=== PATIENT | female | born 1975 | race Hispanic/Latino ===

== ENCOUNTER 2016-07-12 06:46 | Inpatient (IN) | payer OTHER ==
[2016-07-12] MEDS ORDERED: NACL 0.9% 1000 ML 1,000 ML IV ONE (07:30)
[2016-07-12 07:49] LABS: Basophils % (Auto) 0.6 % (0.0-1.8); Eosinophils % (Auto) 0.2 % (0.0-4.3); Hematocrit 37.4 % (30.3-42.9); Hemoglobin 12.1 gm/dl (10.1-14.3); Mean Corpuscular HGB Conc 32 % (30-34); Mean Corpuscular Hemoglobin 26 pg (28-32); Mean Corpuscular Volume 81 fl (79-97); Platelet Count 233 K/mm3 (140-440); Red Blood Count 4.62 M/mm3 (3.65-5.03); Red Cell Distribution Width 17.8 % (13.2-15.2); White Blood Count 5.9 K/mm3 (4.5-11.0)
[2016-07-12 07:58] LABS: INR 0.97 (0.87-1.13)
[2016-07-12 08:08] LABS: Alanine Aminotransferase 8 units/L (7-56); Albumin/Globulin Ratio 1.1 %; Alkaline Phosphatase 141 units/L (35-129); Anion Gap 20 mmol/L; BUN/Creatinine Ratio 8.88; Bilirubin,Total 0.8 mg/dL (0.1-1.2); Blood Urea Nitrogen 8 mg/dL (7-17); Calcium 9.1 mg/dL (8.4-10.2); Carbon Dioxide 22 mmol/L (22-30); Chloride 94.5 mmol/L (98-107); Glucose 151 mg/dL (65-100); Potassium 3.9 mmol/L (3.6-5.0); Sodium 133 mmol/L (137-145); Total Protein 7.8 g/dL (6.3-8.2)
--- NOTE | 2016-07-12 08:18 | Emergency Department Report ---
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 Both of these swellings are minimal at this time. Patient states she's had a 25 pound weight loss in the last month. Patient complains of pain to her left shoulder radiating up to her neck and down her left arm and into her back with movement and palpation. Patient states occasionally when she bends over she feels like there is something moving in her abdomen but is not having any abdominal pain. Patient states she's been having body aches cold chills and diaphoresis. Mode of arrival: private car Source: Patient Began: One month ago Duration: One month Context: See above Quality: Dull shoulder pain Severity: 4 out of 10 Improved with: Nothing Worsened with: Nothing Associated signs and symptoms: See above ED Past Medical Hx - Past Medical History Previous Medical History?: Yes Additional medical history: carciod syndroid - Surgical History Past Surgical History?: Yes Hx Appendectomy: Yes Additional Surgical History: laparoscoy. 5 tumors removed from colon. - Social History Smoking Status: Current Every Day Smoker Substance Use Type: Alcohol - Medications Home Medications: Home Medications Medication Instructions Recorded Confirmed Last Taken Type No Known Home Medications [No 05/24/16 05/24/16 Unknown History Reported Home Medications] ED Review of Systems ROS: Stated complaint: LUMP ON CHEST Other details as noted in HPI ROS Constitutional: fever ENT: No uri symptoms Cardiovascular: No chest pain Respiratory: No sob, occasional smoker's cough GI: No nausea vomiting or diarrhea : No dysuria frequency or urgency, Skin: No rash Neuro: No focal weakness or numbness Psych: No depression Junito/lymph: No edema Physical Exam - Physical Exam Vital Signs: Vital Signs 07/12/16 07/12/16 06:50 07:53 Temperature 98.6 F Pulse Rate 138 H Respiratory 20 18 Rate Blood Pressure 164/94 O2 Sat by Pulse 98 Oximetry Physical Exam: GENERAL: The patient is well-developed well-nourished . HEENT: Normocephalic. Atraumatic. Extraocular motions are intact. Patient has moist mucous membranes. NECK: Supple. No meningitic signs are noted. There is no adenopathy noted. CHEST/LUNGS: Clear to auscultation. There is no respiratory distress noted. HEART/CARDIOVASCULAR: Regular. There is tachycardia. There is no gallop rub or murmur. ABDOMEN: Abdomen is soft, nontender. Patient has normal bowel sounds. There is no abdominal distention. SKIN: There is no rash. There is no edema. There is no diaphoresis. NEURO: The patient is awake, alert, and oriented. The patient is cooperative. The patient has no focal neurologic deficits. The patient has normal speech. MUSCULOSKELETAL: There is no tenderness or deformity. There is no limitation range of motion. There is no evidence of acute injury. ED Course Vital Signs 07/12/16 07/12/16 06:50 07:53 Temperature 98.6 F Pulse Rate 138 H Respiratory 20 18 Rate Blood Pressure 164/94 O2 Sat by Pulse 98 Oximetry ED Medical Decision Making - Lab Data Result diagrams: 07/12/16 07:29 07/12/16 07:29 - EKG Data -: EKG Interpreted by Ks EKG shows normal: sinus rhythm Rate: tachycardia (133) - EKG Data When compared to previous EKG there are: previous EKG unavailable Interpretation: [facility] - Radiology Data Radiology results: report reviewed Critical care attestation.: If time is entered above; I have spent that time in minutes in the direct care of this critically ill patient, excluding procedure time. ED Disposition Clinical Impression: Multiple pulmonary nodules, Adenopathy Disposition: OP ADMITTED IP TO THIS HOSP Is pt being admited?: Yes Does the pt Need Aspirin: Yes Time of Disposition: 10:33 (admit to the hospitalist)
[2016-07-12] MEDS ORDERED: NACL 0.9% 1000 ML IV ONE (08:19)
[2016-07-12 08:33] LABS: Bacteria,Urine 3+ /HPF (Negative); Bilirubin,Urine NEG (Negative); Blood,Urine SM (Negative); Ketones,Urine NEG (Negative); Leukocyte Esterase,Urine MOD (Negative); Mucus,Urine FEW /HPF; Nitrite,Urine NEG (Negative); Protein,Urine <15 mg/dL mg/dL (Negative); Urobilinogen,Urine < 2.0 mg/dL (<2.0)
--- NOTE | 2016-07-12 08:39 | XRay Report ---
AP CHEST: HISTORY: Sepsis, fever AP view of the chest demonstrates a normal mediastinal and cardiac contour with clear lungs and normal bony and soft tissue structures. IMPRESSION: Unremarkable AP chest.
[2016-07-12] MEDS ORDERED: ZOFRAN IV ONE (09:02)
[2016-07-12] MEDS ORDERED: NACL ONE (09:12)
[2016-07-12 09:40] LABS: Urine Drugs of Abuse Note Disclamer
--- NOTE | 2016-07-12 10:51 | Cat Scan Report ---
CTA CHEST CT ABDOMEN AND PELVIS WITH CONTRAST INDICATION: Chest pain. Carcinoid tumor in the past, treated with radiation and multiple laparoscopic surgeries. COMPARISON: None similar. FINDINGS: Chest CTA performed following intravenous administration of 100 cc of Omnipaque 350. Rotational MIP's also obtained. Abdomen and pelvis CT also performed with axial, sagittal and coronal CT reconstructions obtained. CHEST: Top normal heart size. No effusions. No aortic aneurysm, dissection or suspicious pulmonary arterial filling defects. Patent airway. Few small mediastinal lymph nodes with the largest AP window lymph node approximately 9 mm, axial series 2, image 69. A right distal paratracheal lymph node may measure 1 cm, axial image 77. Small subcarinal lymph node is 6 mm in the short axis. No size significant hilar lymphadenopathy. Largest right axillary lymph node is approximately 1.9 x 1 cm, axial image 54, series 2 with some intrinsic fat. Normal thyroid. Numerous small bilateral noncalcified pulmonary nodules noted, many in the upper lobes with the largest left upper lobe nodule approximately 6 mm, axial series 2, image 42. Approximately 6 mm peripheral right upper lobe nodule, axial image 70, few right middle lobe nodules measuring up to 4 mm on axial image 120 as also an approximately 5 mm peripheral/subpleural right lower lobe nodule noted, axial image 132, series 2, amongst others. An approximately 5 mm left lower lobe subpleural noncalcified nodule also seen on axial image 151, series 2. Bibasilar dependent atelectasis. Mild right middle lobe and lingular scarring. Nonspecific distal esophageal wall thickening, not excluded for gastroesophageal reflux and/or hiatal hernia, amongst others. Approximately 9 x 7 mm right cardiophrenic angle lymph node, axial image 150 as also an approximately 1.1 cm distal paraesophageal lymph node at the GE junction, axial image 161, series 2 also seen. Subtle nonspecific asymmetry in the pectoralis major muscles superomedially also noted, asymmetrically enlarged to approximately 3 x 5.5 cm on the left, axial image 43, series 2. ABDOMEN: Approximately 5 mm indeterminate left hepatic lobe hypodensity, axial series 2, image 327. Liver approximately 17 cm in midclavicular length while the spleen is 13.3 cm. Otherwise unremarkable liver, spleen, gallbladder, pancreas, adrenals, nonaneurysmal abdominal aorta with few atherosclerotic calcifications, IVC and non-hydronephrotic kidneys. Slight left renal duplicated collecting system may be present, though fuses fairly quickly with somewhat prominent renal pelvis/proximal ureter as on delayed axial series 4, image 19 and attaining a more normal caliber further distally. No ascites. Few small retroperitoneal lymph nodes measure up to approximately 9 mm left para-aortic on axial image 367, series 2. Few small, subcentimeter mesenteric lymph nodes as well. Nonopacified GI tract evaluation limited, though grossly nonobstructive. Presumed appendectomy clips. However, somewhat nonspecific soft tissue prominence about the ileocecal valve region in the proximal ascending colon, axial series 2, images 433-457, possibly physiologic though an occult mass not entirely excluded in the given setting. Colonic stool, most along the ascending colon/possible mild constipation. PELVIS: Few pelvic phleboliths. Grossly unremarkable uterus, adnexa, urinary bladder and the rectosigmoid except for mild sigmoid diverticulosis. No free fluid or significant adenopathy. Mild multilevel spinal degenerative changes/spurring. CONCLUSION: 1. No CT evidence of pulmonary embolism or acute process in the abdomen or pelvis, as described. 2. However, numerous small noncalcified bilateral pulmonary nodules are suspicious for metastatic disease in the given setting, until proven otherwise. Direct comparison with more remote chest CT imaging would be very helpful in this regard, if available. If not, short-term CT followup in approximately 3 months towards two-year surveillance may be undertaken or until they reach a biopsiable size. 3. Nonspecific proximal ascending colon appearance about the ileocecal valve region, as described above. Colonoscopy/barium enema correlation may provide additional detail, if warranted. 4. Various other incidental findings, including nonspecific asymmetric enlargement of the left pectoralis major muscle superiorly, few small thoracic and abdominal lymph nodes, slight splenomegaly and mild sigmoid diverticulosis, amongst others, as described. PET-CT may also help evaluate many of the above findings, if warranted. I phoned the above results to Dr. John in the ER, 10:20 AM, 07/12/2016. Thank you for the opportunity to participate in this patient's care.
--- NOTE | 2016-07-12 11:13 | Admit Criteria Form ---
Admission Criteria Documentation: PULMONARY DISEASE GRG Clinical Indications for Admission to Inpatient Care ( Place 'X' for any and all applicable criteria): Hospital admission is needed for appropriate care of the patient because of ANY ONE of the following(1): [ ]I. Impending or actual respiratory arrest ( Use Respiratory Failure Criteria for severe respiratory disease and long-term mechanical ventilation patients) (4) [ ]II. Severe airflow or ventilation abnormalities (not responsive to emergency and observation care treatment as appropriate) as indicated by ANY ONE of the following(5)(6)(7)(8) : [ ]a) PCO2 > 42 mm Hg (5.6 kPa) and pH < 7.35 (new) [ ]b) Documented PCO2 increase > 5 mm Hg (0.7 kPa) from disease baseline [ ]c) Airflow measurements[A] < 60% of previous best or predicted ( e.g., PEF <300 L/minute) despite intensive emergent treatment[B] [ ]d) Required respiratory treatments that are performable only in acute inpatient setting [ ]III. Severe respiratory findings (not responsive to emergency and observation care treatment as appropriate) including ANY ONE of the following(5)(8)(9): [ ]a) Respiratory distress as indicated by ALL of the following(5)(10): [ ]i) Patient with ANY ONE of the following: [ ]1) Dyspnea (difficulty breathing) [ ]2) Abnormal breathing pattern (eg, chest retractions) [ ]3) Tachypnea [ ]4) Other evidence of difficulty breathing [ ]ii) Evidence of respiratory compromise indicated by ANY ONE of the following: [ ]1) Hypoxemia [ ]2) Altered mental status [ ]3) Other evidence of respiratory compromise (eg, pulmonary edema on chest x-ray) [ ]b) Stridor [ ]c) Gross hemoptysis(11) [ ]d) Acute cyanosis [ ]IV. High-risk pulmonary infection as indicated by ANY ONE of the following( 19)(20)(21)(22): [ ]a) Temperature less than 95 degrees F(35 degrees C) or greater than 103.1 degrees F(39.5 degrees C) [ ]b) Hemodynamic instability that remains after emergency or observation level care (as appropriate) [ ]c) Immunocompromised patient (eg, AIDS, post transplant, neutropenic) [ ]d) History of severe COPD [ ]e) History of severely symptomatic congestive heart failure [ ]f) Other high-risk comorbidity (eg, poorly controlled diabetes, cirrhosis, chronic renal insufficiency) [ ]g) Hypoxemia (new) [ ]h) Outpatient, observation, or recovery facility therapy has failed, is not appropriate, or is not feasible [ ]V. Severe atelectasis or lung collapse(15)(16) [ ]. Tuberculosis requiring inpatient treatment as indicated by ANY ONE of the following(17)(18): [ ]a) New positive acid-fast bacilli sputum smear [ ]b) Positive acid-fast bacilli smear (under current treatment), with ANY ONE of the following: [ ]i) Unexposed household contacts [ ]ii) Infants or immunosuppressed household contacts [ ]iii) Patient unable or unwilling to avoid exposing others [ ]iv) Severe immunocompromised patient (eg, AIDS, post transplant, neutropenic) [ ]VII. Empyema or lung abscess(13)(14) [ ]VIII. Severe pulmonary arterial hypertension or pulmonary vascular disease requiring inpatient care indicated by ANY ONE of the following(24)(25): [ ]a) Initiation or change of vasodilators (IV, subcutaneous, or inhaled) or other vasoactive medications needed [ ]b) IV anticoagulation needed (eg, immediate anticoagulation necessary, alternatives not appropriate) [ ]c) Arterial or pulmonary artery catheter monitoring needed due to infusion or other treatment [ ]IX. Chronic lung disease with severe deterioration (not responsive to emergency and observation care treatment as appropriate) as indicated by ANY ONE of the following (6)(12): [ ]a) SaO2 5% below baseline in patient with chronic hypoxemia [ ]b) New requirement for supplemental oxygen to keep SaO2 at baseline or acceptable level [ ]c) Required supplemental oxygen performable only in acute inpatient setting [ ]d) Severe airflow or ventilation abnormalities [ ]e) Rapid rate of exacerbation onset [ ]f) Previously mobile patient unable to walk between rooms [ ]g) Inability to eat or sleep due to dyspnea [ ]h) Altered mental status [ ]X. Cystic fibrosis with severe deterioration as indicated by ANY ONE of the following(26)(27): [ ]a) Severe exacerbation that does not respond to intensified home therapy [ ]b) Pneumonia [ ]c) Hemoptysis [ ]d) Atelectasis [ ]e) Pneumothorax [ ]f) Respiratory failure [ ]g) Severe exacerbation with patient unable to perform prescribed treatments at home [ ]XI. Severe right heart failure as indicated by ANY ONE of the following(24) (25): [ ]a) Increasing organ failure (eg, liver congestion with significant and worsening or new elevation of transaminases) [ ]b) Anasarca [ ]c) Angina that requires inpatient care (eg, not treatable in emergency or observation level of care) [ ]d) Respiratory distress [ ]e) Syncope [ ]f) SBP < 90 mm Hg (new) [ ]XII. Injury requiring inpatient care (medical) as indicated by ANY ONE of the following(28): [ ]a) Significant inhalation injury (eg, smoke inhalation, other toxic inhalation) (29)(30)(31) [ ]b) Airway obstruction that remains or is unstable after emergency or observation level care(32) [ ]c) Severe pain requiring acute inpatient management [ ]d) Lung contusion [ ]e) Bronchial tree injury [ ]f) Air or fat emboli(33) [ ]g) Other injury not treatable in emergency or observation level care (eg, hemothorax) (34) [ ]XIII. Pulmonary hemorrhage or significant hemoptysis(11)(35)(36) [ ]XIV. Inpatient palliative care needed[C](37)(38)(39)(40) [ ]XV. Complications of lung transplant (eg, rejection, failure, respiratory infection) (23) [X]XVI. Pulmonary Disease and ANY ONE of the following: [X]a) General Admission Criteria [ ]b) Pediatric General Admission Criteria The original [facility] content created by [facility] has been revised. The portions of the content which have been revised are identified through the use of italic text or in bold, and [facility] has neither reviewed nor approved the modified material. All other unmodified content is copyright [facility]. Please see references footnoted in the original [facility] edition 2016 Admission Criteria Met: Yes
[2016-07-12] MEDS ORDERED: ZOFRAN IV PRN (20:57)
[2016-07-13] MEDS: APRESOLINE IV PRN ×3 (00:06→08:28)
[2016-07-13] MEDS: DILAUDID IV PRN ×5 (00:07→19:22)
[2016-07-13] MEDS: ATIVAN IV PRN ×3 (04:20→23:18)
[2016-07-13] MEDS ORDERED: NITRO-BID 2% TP ONE (04:40)
--- NOTE | 2016-07-13 08:34 | History and Physical Report ---
CHIEF COMPLAINT: 1. Swelling under the left clavicle area. 2. Swelling in the right lower leg around the mid calf region. 3. Weight loss. 4. Fever. 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 The patient has shown pictures of the left infraclavicular swelling which measures about 10 cm to 5 cm swelling below the left clavicle, but which is not prominent at the time of presentation to the ER. Also, swelling on the right webb and also on the left side of the face. She lost about 25 pounds of weight recently. The patient also complains of left shoulder pain radiating to the neck and down the left arm. Other than losing weight, the patient does not have any symptoms. PAST MEDICAL HISTORY: Significant for carcinoid syndrome. PAST SURGICAL HISTORY: Significant for laparoscopy and 5 tumors removed from colon. SOCIAL HISTORY: Smokes over a pack a day. Alcohol occasionally. FAMILY HISTORY: Significant for hypertension. CURRENT MEDICATIONS: None. REVIEW OF SYSTEMS: Significant for recurrent swelling in the left infraclavicular region, right webb, and left side of the face and of weight loss. Otherwise, review of systems is essentially negative. A 14-point review of systems was done. PHYSICAL EXAMINATION: GENERAL: Middle-aged female, cooperative during examination. VITAL SIGNS: Temperature 98.6, pulse is 138, respirations are 20, blood pressure is 164/94, sats are 98%. HEENT: Unremarkable. Pupils equal and reactive. NECK: Supple. No lymphadenopathy, no thyromegaly. CHEST: Swelling on the left infraclavicular region present, not as prominent as the pictures she has shown on her telephone. Is about 3 x 5 cm, elevated by about 1 cm. Firm in nature. Not hard. Not fluctuant. LUNGS: Clear to auscultation and percussion. Good air entry. CARDIOVASCULAR: S1, S2 heard. No gallop, no murmur, no rub. Apical impulse in left fifth intercostal space and midclavicular line. ABDOMEN: Soft and benign. No hepatosplenomegaly. No guarding, no rigidity. Hernial orifices are normal. EXTREMITIES: Good pedal pulses. No pedal edema. There is a small swelling on the right webb, 1 x 1 cm in the mid calf region. On the left side of the face, there is no swelling. SKIN: Normal. CENTRAL NERVOUS SYSTEM: Alert and oriented x 4. Nonfocal deficits. LABORATORY DATA: Electrolytes were normal. Sodium is 133, slightly low. BUN and creatinine are 8 and 0.9. White count is 5900. Glucose is 151. LFTs are normal. Urine shows 10 wbc's. Drug screen positive for cocaine and opiates. CAT scan of the abdomen and pelvis, numerous small noncalcified bilateral pulmonary nodules, suspicious for metastatic cancer in the given setting until proven otherwise. Previous CAT scan is not available. Nonspecific proximal ascending colon appearance about the ileocecal valve region as described above. Colonoscopy with barium enema correlations may provide additional detail. Various other incidental findings including nonspecific asymmetric enlargement of the left pectoralis muscle superiorly. CTA of the chest shows the same thing, numerous small noncalcified bilateral pulmonary nodules suspicious for metastatic disease. Nonspecific proximal ascending colon appearance. Various other incidental findings. Chest x-ray shows unremarkable AP chest. ASSESSMENT AND PLAN: 1. 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 We will get oncology consultation with Dr. Floyd. 2. Hypertension. No known home medications. The patient started on losartan 100 mg daily. Blood pressure 217/119. IV fluids for the time being. 3. Pain management. Dilaudid 1 mg q. 3 p.r.n. along with Zofran 4 mg q. 3 p.r.n. 4. Deep venous thrombosis prophylaxis. Lovenox 40 mg subcutaneous daily. JOB# [id number] VSSravani/NTS
[2016-07-13] MEDS: COZAAR PO SCH (10:12)
--- NOTE | 2016-07-13 12:21 | Progress Note ---
Assessment and Plan Assessment and plan: Patient is history of carcinoid, presented with fever, weight loss and mass on the chest - CT showed nodules in the lung and also some lesions in the colon and liver - There is no mass on the chest currently patient has on and off mass on the right chest - Oncology consult UTI - Urine is positive for gram-negative rods - Patient started on by mouth Levaquin Prophylaxis - Lovenox Disposition - Continue care History Interval history: Patient was seen and evaluated this morning. She had a panic attack this morning. Hospitalist Physical - Physical exam Narrative exam: Not in cardiopulmonary distress. The patient appeared well nourished and normally developed. Vital signs as documented. Head exam is unremarkable. No scleral icterus . Neck is without jugular venous distension, thyromegaly, or carotid bruits. Lungs are clear to auscultation. Cardiac exam reveals regular rate and Rhythm. First and second heart sounds normal. No murmurs, rubs or gallops. Abdominal exam reveals normal bowel sounds, no masses, no organomegaly and no aortic enlargement. Extremities are nonedematous and both femoral and pedal pulses are normal. 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 No focal weakness. - Constitutional Vitals: Temp Pulse Resp BP Pulse Ox 98 F 124 H 22 152/110 98 07/13/16 07:55 07/13/16 07:55 07/13/16 08:54 07/13/16 10:12 07/13/16 07:55 Results - Labs CBC & Chem 7: 07/12/16 07:29 07/12/16 07:29 Labs: Laboratory Last Values WBC 5.9 K/mm3 (4.5-11.0) 07/12/16 07:29 RBC 4.62 M/mm3 (3.65-5.03) 07/12/16 07:29 Hgb 12.1 gm/dl (10.1-14.3) 07/12/16 07:29 Hct 37.4 % (30.3-42.9) 07/12/16 07:29 MCV 81 fl (79-97) 07/12/16 07:29 MCH 26 pg (28-32) L 07/12/16 07:29 MCHC 32 % (30-34) 07/12/16 07:29 RDW 17.8 % (13.2-15.2) H 07/12/16 07:29 Plt Count 233 K/mm3 (140-440) 07/12/16 07:29 Lymph % (Auto) 14.6 % (13.4-35.0) 07/12/16 07:29 [place] % (Auto) 6.7 % (0.0-7.3) 07/12/16 07:29 Eos % (Auto) 0.2 % (0.0-4.3) 07/12/16 07:29 Baso % (Auto) 0.6 % (0.0-1.8) 07/12/16 07:29 Lymph # 0.9 K/mm3 (1.2-5.4) L 07/12/16 07:29 [place] # 0.4 K/mm3 (0.0-0.8) 07/12/16 07: Eos # 0.0 K/mm3 (0.0-0.4) 07/12/16 07: Baso # 0.0 K/mm3 (0.0-0.1) 07/12/16 07:29 Seg Neutrophils % 77.9 % (40.0-70.0) H 07/12/16 07:29 Seg Neutrophils # 4.6 K/mm3 (1.8-7.7) 07/12/16 07:29 PT 12.8 Sec. (12.2-14.9) 07/12/16 07:29 INR 0.97 (0.87-1.13) 07/12/16 07:29 D-Dimer 389.7 ng/mlDDU (0-234) H 07/12/16 08:07 VBG pH 7.365 (7.320-7.420) 07/12/16 07:29 Sodium 133 mmol/L (137-145) L 07/12/16 07:29 Potassium 3.9 mmol/L (3.6-5.0) 07/12/16 07:29 Chloride 94.5 mmol/L (98-107) L 07/12/16 07:29 Carbon Dioxide 22 mmol/L (22-30) 07/12/16 07:29 Anion Gap 20 mmol/L 07/12/16 07:29 BUN 8 mg/dL (7-17) 07/12/16 07:29 Creatinine 0.9 mg/dL (0.7-1.2) 07/12/16 07:29 Estimated GFR > 60 ml/min 07/12/16 07:29 BUN/Creatinine Ratio 8.88 % 07/12/16 07:29 Glucose 151 mg/dL (65-100) H 07/12/16 07:29 Lactic Acid 1.0 mmol/L (0.7-2.0) 07/12/16 10:12 Calcium 9.1 mg/dL (8.4-10.2) 07/12/16 07:29 Total Bilirubin 0.8 mg/dL (0.1-1.2) 07/12/16 07:29 AST 17 units/L (5-40) 07/12/16 07:29 ALT 8 units/L (7-56) 07/12/16 07:29 Alkaline Phosphatase 141 units/L (35-129) H 07/12/16 07:29 Total Protein 7.8 g/dL (6.3-8.2) 07/12/16 07:29 Albumin 4.0 g/dL (3.9-5) 07/12/16 07:29 Albumin/Globulin Ratio 1.1 % 07/12/16 07:29 TSH 0.607 mlU/mL (0.270-4.200) 07/12/16 08:11 Urine Color Yellow (Yellow) 07/12/16 Unknown Urine Turbidity Clear (Clear) 07/12/16 Unknown Urine pH 5.0 (5.0-7.0) 07/12/16 Unknown Ur Specific [place] 1.010 (1.003-1.030) 07/12/16 Unknown Urine Protein <15 mg/dl mg/dL (Negative) 07/12/16 Unknown Urine Glucose (UA) Neg mg/dL (Negative) 07/12/16 Unknown Urine Ketones Neg mg/dL (Negative) 07/12/16 Unknown Urine Blood Sm (Negative) 07/12/16 Unknown Urine Nitrite Neg (Negative) 07/12/16 Unknown Urine Bilirubin Neg (Negative) 07/12/16 Unknown Urine Urobilinogen < 2.0 mg/dL (<2.0) 07/12/16 Unknown Ur Leukocyte Esterase Mod (Negative) 07/12/16 Unknown Urine WBC (Auto) 10.0 /HPF (0.0-6.0) H 07/12/16 Unknown Urine RBC (Auto) 6.0 /HPF (0.0-6.0) 07/12/16 Unknown U Epithel Cells (Auto) 12.0 /HPF (0-13.0) 07/12/16 Unknown Urine Bacteria (Auto) 3+ /HPF (Negative) 07/12/16 Unknown Urine Mucus Few /HPF 07/12/16 Unknown Urine Opiates Screen Presumptive positive 07/12/16 08:00 Urine Methadone Screen Presumptive negative 07/12/16 08:00 Ur Barbiturates Screen Presumptive negative 07/12/16 08:00 Ur Phencyclidine Scrn Presumptive negative 07/12/16 08:00 Ur Amphetamines Screen Presumptive negative 07/12/16 08:00 U Benzodiazepines Scrn Presumptive positive 07/12/16 08:00 Urine Cocaine Screen Presumptive positive 07/12/16 08:00 U Marijuana (THC) Screen Presumptive negative 07/12/16 08:00 Drugs of Abuse Note Disclamer 07/12/16 08:00
[2016-07-13] MEDS: LEVAQUIN PO SCH (13:02)
--- NOTE | 2016-07-13 16:01 | Gastroenterology Consultation ---
History of Present Illness - Reason for Consult Consult date: 07/13/[address] scan Requesting physician: VENESSA GORMAN-MO - History of Present Illness Ms. 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 The patient states she's had a 25 pound weight loss in the last month. Patient complains of pain to her left shoulder and a headache at this time. She also has some pain in the RLQ. Her last colonoscopy was 20 year ago. Past History Past Medical History: other (carcinoid tumor of colon) Past Surgical History: appendectomy, Other (exploratory lap) Social history: no significant social history Family history: no significant family history Medications and Allergies Allergies Allergy/AdvReac Type Severity Reaction Status Date / Time No Known Allergies Allergy Verified 07/12/16 07:00 Home Medications Medication Instructions Recorded Confirmed Last Taken Type No Known Home Medications [No 05/24/16 07/12/16 Unknown History Reported Home Medications] Active Meds: Active Medications Hydralazine HCl (Apresoline) 10 mg IV Q4HR PRN PRN Reason: HYPERTENSION Last Admin: 07/13/16 08:28 Dose: 10 mg Hydromorphone HCl (Dilaudid) 1 mg IV Q3H PRN PRN Reason: Pain , Severe (7-10) Last Admin: 07/13/16 14:42 Dose: 1 mg Levofloxacin (Levaquin) 500 mg PO Q24HR PATY Last Admin: 07/13/16 13:02 Dose: 500 mg Lorazepam (Ativan) 1 mg IV Q6H PRN PRN Reason: Anxiety Last Admin: 07/13/16 10:15 Dose: 1 mg Losartan Potassium (Cozaar) 100 mg PO QDAY PATY Last Admin: 07/13/16 10:12 Dose: 100 mg Ondansetron HCl (Zofran) 4 mg IV Q3H PRN PRN Reason: Nausea And Vomiting Review of Systems - Review of Systems Constitutional: weight loss, other (headache) Gastrointestinal: abdominal pain Exam - Constitutional Vital Signs: Temp Pulse Resp BP Pulse Ox 98 F 124 H 22 152/110 98 07/13/16 07:55 07/13/16 07:55 07/13/16 08:54 07/13/16 10:12 07/13/16 07:55 General appearance: no acute distress, other (photophobia) - EENT Eyes: EOM intact ENT: hearing intact - Neck Neck: supple - Respiratory Respiratory: bilateral: CTA - Cardiovascular Rhythm: regular Heart Sounds: Present: S1 & S2 - Gastrointestinal General gastrointestinal: Present: soft, non-tender - Integumentary Integumentary: Present: warm, dry - Neurologic Neurological: alert and oriented x3 - Psychiatric Psychiatric: appropriate mood/affect, cooperative - Labs CBC & Chem 7: 07/12/16 07:29 07/12/16 07:29 Assessment and Plan 1.abnormal CT scan -Noted pulmonary nodules with soft tissue prominence at the I. valve and proximal ascending colon. -Patient is scheduled for MRI of chest/shoulder -Will wait for further input from Oncology -Will follow -Check CEA
[2016-07-13] MEDS ORDERED: MOTRIN PO PRN (17:05)
[2016-07-14] MEDS: DILAUDID IV PRN ×4 (04:33→20:04)
[2016-07-14] MEDS: LEVAQUIN PO SCH (10:16)
[2016-07-14] MEDS: COZAAR PO SCH (10:17)
[2016-07-14] MEDS: APRESOLINE IV PRN ×2 (10:20→20:05)
[2016-07-14] MEDS: ATIVAN IV PRN ×3 (10:45→23:47)
--- NOTE | 2016-07-14 11:22 | Consultation ---
REQUESTING PHYSICIAN: Sabino Burnett MD REASON FOR REQUEST: 1. History of carcinoid syndrome, now with swelling of the left pectoralis muscle, possible malignancy and numerous bilateral small noncalcified pulmonary nodules that could be suspicious for metastases, but according to radiologist Dr. Cuevas too small to biopsy, nonspecific proximal ascending colon appearance. Colonoscopy recommended. 2. Urinary tract infection. 3. Left neck pain radiating down into the left shoulder. 4. History of at least 5 resections of carcinoid tumor, 3 laparoscopically, 2 via colonoscopies according to the patient. No abdominal scars identified, however. Two lesions removed at the [facility] in [place], [place] in 1996. The other lesions removed at [facility] when the patient was a teenager. 5. Abnormal weight loss approximately 25 pounds over the past gesem-thk-n-half, preceeded by nausea, vomiting, and decreased appetite. RECOMMENDATIONS: 1. MRI of the left chest, neck, shoulder to assess the left pectoralis muscle swelling to see if suspicious enough to perform a biopsy. 2. 5-HIAA 24-hour urine to be collected. 3. PET scan as an outpatient. 4. GI consultation for evaluation and possible colonoscopy. 5. Continue treatment with Levaquin for urinary tract infection. 6. Obtain medical record from both [facility] and [facility]. 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 According to the patient, she was seen and treated at [facility] and had tumors removed as well as via laparoscope and colonoscopy. The patient states she also received radiation therapy. Unfortunately, there are no records available for review. The patient states she has not sought medical followup for over 10 years as she lost her medical insurance. She comes in now with complaints of left chest swelling. She has pictures that show a left chest swelling approximately 10 x 5 cm; however, upon presentation to the [facility], the area was approximately 10 x 5, slightly swollen and firm area, but it was not raised more than a cm in depth. She also complained of intermittent fevers which she states have occurred during the past qwbwz-yuf-k-half, they had been as high as 100.2. She also complains of generalized fatigue. She states she has flushing, but only once a week. She also states that prior to 2 weeks ago, she had chronic intermittent diarrhea. According to her the last 6 days, however, she has not had a bowel movement. The patient denied any back pain, cough, or hemoptysis. Her main complaint is dull and sharp left neck pain which radiates down to her shoulder. No numbness or tingling. ALLERGIES: No known drug allergies. MEDICATIONS: Hydralazine 10 mg IV q.4 hours p.r.n., hydromorphone HCI 1 mg IV q.3 hours p.r.n., Levaquin 500 mg p.o. q.24 hours, lorazepam 1 mg IV q.6 hours p.r.n. anxiety, Cozaar 100 mg p.o. daily, Zofran 4 mg IV q.3 hours p.r.n. PAST MEDICAL HISTORY: Carcinoid tumor and carcinoid syndrome diagnosed at age of 15, status post 3 laparoscopic surgeries and 2 colonoscopies with removal of carcinoid tumors. PAST SURGICAL HISTORY: Appendectomy. FAMILY HISTORY: Negative for malignancy. SOCIAL HISTORY: The patient is not . She has 2 sons in college, one in [place], one in [place]. She smokes oxup-h-nbht-a-day since approximately age 17. She denies drinking significant alcohol. She does smoke marijuana. She denied cocaine usage, but admits to taking her friends narcotics intermittently in the past month for pain control. REVIEW OF SYSTEMS GENERAL: The patient complains of 25 pounds weight loss with associated anorexia. She also complained of fever. She denied chills. She denied night sweats, but complained of flushing intermittently. HEENT: The patient denies any headaches currently. No blurry vision. NECK: Neck pain as history of present illness. CARDIOVASCULAR: The patient denies any chest pain or palpitations, any paroxysmal nocturnal dyspnea. RESPIRATORY: The patient denies any shortness of breath, cough, or hemoptysis. GASTROINTESTINAL: As per the history of present illness. No bright red blood per rectum, no melanotic stools. GENITOURINARY: No hematuria, but the patient complained of dysuria. NEUROLOGIC: No focal numbness, tingling, or weakness. HEMATOLOGIC: The patient denies any bleeding or bruising. PHYSICAL EXAMINATION: VITAL SIGNS: Temperature 98, pulse 120, respirations 22, blood pressure 152/110. Performance status 2, pain 3/10 currently. HEENT: Normocephalic, atraumatic. Pupils were equal. Pharynx was clear. NECK: Supple. Some slight tenderness on the left side of the neck. No palpable supraclavicular or cervical adenopathy. LUNGS: Clear to auscultation anteriorly. There is a fullness that measures approximately 10 x 5 cm in the left anterior chest inferior to the clavicle. No axillary lymph nodes identified. BREASTS: The patient refused. CARDIOVASCULAR: S1, S2. No murmurs appreciated. ABDOMEN: Positive bowel sounds, tenderness in the suprapubic area. No laparoscopic scars were identified. No hepatosplenomegaly appreciated. EXTREMITIES: No cyanosis. No clubbing or edema. There are 2 firm small nodules on the patient's leg. NEUROLOGIC: She is awake, alert, oriented. She moves all four extremities. Her gait was not tested. PSYCHIATRIC: No evidence of acute anxiety. The patient has a flat affect, consistent with depression. LABORATORY DATA: Hemoglobin 12.1, hematocrit 37, platelet count [id number], WBC count 5.9, sodium 133, potassium 3.9, glucose 151. D-dimer 389, but INR of 0.97. Alkaline phosphatase 141. Urinalysis: Urine was clear, less than ____ 3+ bacteria. Urine toxicology, positive for opioids, positive for benzodiazepines, positive for urine cocaine. CTA, no evidence of pulmonary embolus or acute process, numerous small noncalcified bilateral pulmonary nodules, was suspicious for metastatic disease, was recommended a more dedicated CT be obtained and repeat in 3 months. There was nonspecific proximal ascending colon ____ ileocecal valve, recommended colonoscopy, various other abnormalities such as enlargement of the left pectoralis major muscle superiorly and a few small thoracic and abdominal lymph nodes, slight minimal splenomegaly and some mild sigmoid diverticulosis. Thank you very much for allowing us to participate in the care of this patient. JOB# [id number] PH/NTS
[2016-07-14] MEDS ORDERED: ATIVAN IV ONE (11:23)
--- NOTE | 2016-07-14 12:00 | Progress Note ---
Assessment and Plan Assessment and plan: Patient is history of carcinoid, presented with fever, weight loss and mass on the chest - CT showed nodules in the lung and also some lesions in the colon and liver - There is no mass on the chest currently patient has on and off mass on the right chest - Oncology consult appreciated - GI consult appreciated - MRI/MRA recommended by oncology UTI - Urine is positive for gram-negative rods - Patient started on by mouth Levaquin Prophylaxis - Lovenox Disposition - Continue inpatient care until he finish work up History Interval history: Patient was seen and evaluated this morning. She has agoraphobia to go to MRI machine and she was given ativan. Hospitalist Physical - Physical exam Narrative exam: Not in cardiopulmonary distress. The patient appeared well nourished and normally developed. Vital signs as documented. Head exam is unremarkable. No scleral icterus . Neck is without jugular venous distension, thyromegaly, or carotid bruits. Lungs are clear to auscultation. Cardiac exam reveals regular rate and Rhythm. First and second heart sounds normal. No murmurs, rubs or gallops. Abdominal exam reveals normal bowel sounds, no masses, no organomegaly and no aortic enlargement. Extremities are nonedematous and both femoral and pedal pulses are normal. NICOLÁS: i couldn't feel any mass on the chest that she showed me on the picture. 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 No focal weakness. - Constitutional Vitals: Temp Pulse Resp BP Pulse Ox 97.8 F 101 H 15 175/126 99 07/14/16 07:15 07/14/16 07:15 07/14/16 07:15 07/14/16 10:20 07/14/16 07:15 Results - Labs CBC & Chem 7: 07/12/16 07:29 07/12/16 07:29 Labs: Laboratory Last Values WBC 5.9 K/mm3 (4.5-11.0) 07/12/16 07:29 RBC 4.62 M/mm3 (3.65-5.03) 07/12/16 07:29 Hgb 12.1 gm/dl (10.1-14.3) 07/12/16 07:29 Hct 37.4 % (30.3-42.9) 07/12/16 07:29 MCV 81 fl (79-97) 07/12/16 07:29 MCH 26 pg (28-32) L 07/12/16 07: MCHC 32 % (30-34) 07/12/16 07: RDW 17.8 % (13.2-15.2) H 07/12/16 07:29 Plt Count 233 K/mm3 (140-440) 07/12/16 07: Lymph % (Auto) 14.6 % (13.4-35.0) 07/12/16 07: [place] % (Auto) 6.7 % (0.0-7.3) 07/12/16 07: Eos % (Auto) 0.2 % (0.0-4.3) 07/12/16 07: Baso % (Auto) 0.6 % (0.0-1.8) 07/12/16 07: Lymph # 0.9 K/mm3 (1.2-5.4) L 07/12/16 07: [place] # 0.4 K/mm3 (0.0-0.8) 07/12/16 07: Eos # 0.0 K/mm3 (0.0-0.4) 07/12/16 07: Baso # 0.0 K/mm3 (0.0-0.1) 07/12/16 07: Seg Neutrophils % 77.9 % (40.0-70.0) H 07/12/16 07: Seg Neutrophils # 4.6 K/mm3 (1.8-7.7) 07/12/16 07: PT 12.8 Sec. (12.2-14.9) 07/12/16 07: INR 0.97 (0.87-1.13) 07/12/16 07:29 D-Dimer 389.7 ng/mlDDU (0-234) H 07/12/16 08:07 VBG pH 7.365 (7.320-7.420) 07/12/16 07:29 Sodium 133 mmol/L (137-145) L 07/12/16 07:29 Potassium 3.9 mmol/L (3.6-5.0) 07/12/16 07: Chloride 94.5 mmol/L (98-107) L 07/12/16 07:29 Carbon Dioxide 22 mmol/L (22-30) 07/12/16 07:29 Anion Gap 20 mmol/L 07/12/16 07:29 BUN 8 mg/dL (7-17) 07/12/16 07:29 Creatinine 0.9 mg/dL (0.7-1.2) 07/12/16 07:29 Estimated GFR > 60 ml/min 07/12/16 07:29 BUN/Creatinine Ratio 8.88 % 07/12/16 07:29 Glucose 151 mg/dL (65-100) H 07/12/16 07:29 Lactic Acid 1.0 mmol/L (0.7-2.0) 07/12/16 10:12 Calcium 9.1 mg/dL (8.4-10.2) 07/12/16 07:29 Total Bilirubin 0.8 mg/dL (0.1-1.2) 07/12/16 07:29 AST 17 units/L (5-40) 07/12/16 07:29 ALT 8 units/L (7-56) 07/12/16 07:29 Alkaline Phosphatase 141 units/L (35-129) H 07/12/16 07:29 Total Protein 7.8 g/dL (6.3-8.2) 07/12/16 07:29 Albumin 4.0 g/dL (3.9-5) 07/12/16 07:29 Albumin/Globulin Ratio 1.1 % 07/12/16 07:29 TSH 0.607 mlU/mL (0.270-4.200) 07/12/16 08:11 Urine Color Yellow (Yellow) 07/12/16 Unknown Urine Turbidity Clear (Clear) 07/12/16 Unknown Urine pH 5.0 (5.0-7.0) 07/12/16 Unknown Ur Specific [place] 1.010 (1.003-1.030) 07/12/16 Unknown Urine Protein <15 mg/dl mg/dL (Negative) 07/12/16 Unknown Urine Glucose (UA) Neg mg/dL (Negative) 07/12/16 Unknown Urine Ketones Neg mg/dL (Negative) 07/12/16 Unknown Urine Blood Sm (Negative) 07/12/16 Unknown Urine Nitrite Neg (Negative) 07/12/16 Unknown Urine Bilirubin Neg (Negative) 07/12/16 Unknown Urine Urobilinogen < 2.0 mg/dL (<2.0) 07/12/16 Unknown Ur Leukocyte Esterase Mod (Negative) 07/12/16 Unknown Urine WBC (Auto) 10.0 /HPF (0.0-6.0) H 07/12/16 Unknown Urine RBC (Auto) 6.0 /HPF (0.0-6.0) 07/12/16 Unknown U Epithel Cells (Auto) 12.0 /HPF (0-13.0) 07/12/16 Unknown Urine Bacteria (Auto) 3+ /HPF (Negative) 07/12/16 Unknown Urine Mucus Few /HPF 07/12/16 Unknown Urine Opiates Screen Presumptive positive 07/12/16 08:00 Urine Methadone Screen Presumptive negative 07/12/16 08:00 Ur Barbiturates Screen Presumptive negative 07/12/16 08:00 Ur Phencyclidine Scrn Presumptive negative 07/12/16 08:00 Ur Amphetamines Screen Presumptive negative 07/12/16 08:00 U Benzodiazepines Scrn Presumptive positive 07/12/16 08:00 Urine Cocaine Screen Presumptive positive 07/12/16 08:00 U Marijuana (THC) Screen Presumptive negative 07/12/16 08:00 Drugs of Abuse Note Disclamer 07/12/16 08:00
--- NOTE | 2016-07-14 13:25 | Gastroenterology Progress Note ---
Assessment and Plan GI: pt h/o carcinoid now with concern for malignancy with abnormal ct scan - MRI today, await results - plan colonoscopy in am - will follow Subjective Date of service: 07/14/16 Interval history: - no GI complaints overnight Objective - Constitutional Vitals: Temp Pulse Resp BP Pulse Ox 97.8 F 101 H 15 175/126 99 07/14/16 07:15 07/14/16 07:15 07/14/16 07:15 07/14/16 10:20 07/14/16 07:15 General appearance: no acute distress - Respiratory Respiratory: bilateral: CTA - Cardiovascular Rhythm: regular Heart Sounds: Present: S1 & S2 - Gastrointestinal General gastrointestinal: Present: soft, non-tender - Labs CBC & Chem 7: 07/12/16 07:29 07/12/16 07:29
--- NOTE | 2016-07-14 13:59 | Magnetic Resonance Report ---
MRI UPPER EXTREMITY JOINT LEFT WITHOUT CONTRAST Technique: Multisequence, multiplanar MRI without contrast. Findings: Due to excessive motion and poor choice of the field of view by the technologist on the MRI sequences. This examination is uninterpretable. There is no obvious brachial plexus abnormality on this severely limited examination. Impression: Suboptimal study.
[2016-07-14] MEDS ORDERED: GOLYTELY PO ONE (18:00)
[2016-07-14] MEDS: DESYREL PO PRN (21:51)
[2016-07-15] MEDS: DILAUDID IV PRN ×4 (05:57→23:34)
--- NOTE | 2016-07-15 10:01 | Magnetic Resonance Report ---
MRI OF THE CHEST WITH AND WITHOUT CONTRAST: HISTORY: Left anterior chest induration/mass. PROCEDURE: A multiplanar, multisequence examination was performed with and without contrast including selected fat saturation sequences. There is [id number] compromise in image quality due to patient motion artifact despite sedation x2. The study is read with these limitations. FINDINGS: There is enlargement of the upper left pectoralis major and minor muscles with fairly uniform enhancement of these areas after contrast administration. The overall extent of the enhancement measures approximately 7.7 cm in transverse dimension, 5.6 cm in cephalocaudad plane, and 3.5 cm in maximum AP dimension. The margins of the enhancement are ill-defined with no discernible capsule. There may be minimal involvement of the intercostal muscles on the left. The adjacent breast parenchyma appears normal. Multiple bilateral pulmonary nodules are again noted but better defined on a recent chest CT performed on July 12. No additional focal soft tissue abnormalities are seen. IMPRESSION: 1. Enlargement of the left superior pectoralis major and minor muscles with minimal involvement of the adjacent intercostal muscles with associated enhancement, as described above. This finding is nonspecific and could represent an inflammatory or infectious etiology, but a neoplastic process cannot be excluded especially in light of multiple pulmonary nodules. 2. Multiple pulmonary nodules, better imaged on recent chest CT.
[2016-07-15] MEDS: COZAAR PO SCH (11:40)
[2016-07-15] MEDS: LEVAQUIN PO SCH (11:40)
--- NOTE | 2016-07-15 12:57 | Progress Note ---
Assessment and Plan Assessment and plan: Patient is history of carcinoid, presented with fever, weight loss and mass on the chest - CT showed nodules in the lung and also some lesions in the colon and liver - There is no mass on the chest currently, there is no palpable lymph node that the patient claimed - Oncology consult appreciated - GI consult appreciated, is going to have colonoscopy today - MRI chest wall showed some nonspecific mass, but not big enough to do biopsy - 24-hour urine 5 HIAA was ordered 2 days ago and I called the nurse today and is going to collect once she came back from colonoscopy UTI - Urine is positive for E. coli sensitive to quinolones - Patient is on by mouth Levaquin Prophylaxis - Lovenox Disposition - Continue inpatient care until he finish work up History Interval history: Patient was seen and evaluated this morning. She is going to have colonoscopy. Hospitalist Physical - Physical exam Narrative exam: Not in cardiopulmonary distress. The patient appeared well nourished and normally developed. Vital signs as documented. Head exam is unremarkable. No scleral icterus . Neck is without jugular venous distension, thyromegaly, or carotid bruits. Lungs are clear to auscultation. Cardiac exam reveals regular rate and Rhythm. First and second heart sounds normal. No murmurs, rubs or gallops. Abdominal exam reveals normal bowel sounds, no masses, no organomegaly and no aortic enlargement. Extremities are nonedematous and both femoral and pedal pulses are normal. NICOLÁS: i couldn't feel any mass on the chest that she showed me on the picture. No tenderness of the chest, didn't find any lymph node. MEDICAL RECORD CODER: Alert and oriented 3. No focal weakness. - Constitutional Vitals: Temp Pulse Resp BP Pulse Ox 98.4 F 112 H 18 138/85 98 07/15/16 07:37 07/15/16 07:37 07/15/16 07:37 07/15/16 11:40 07/15/16 07:37 Results - Labs CBC & Chem 7: 07/12/16 07:29 07/12/16 07:29 Labs: Laboratory Last Values WBC 5.9 K/mm3 (4.5-11.0) 07/12/16 07:29 RBC 4.62 M/mm3 (3.65-5.03) 07/12/16 07:29 Hgb 12.1 gm/dl (10.1-14.3) 07/12/16 07: Hct 37.4 % (30.3-42.9) 07/12/16 07: MCV 81 fl (79-97) 07/12/16 07: MCH 26 pg (28-32) L 07/12/16 07: MCHC 32 % (30-34) 07/12/16 07: RDW 17.8 % (13.2-15.2) H 07/12/16 07: Plt Count 233 K/mm3 (140-440) 07/12/16 07: Lymph % (Auto) 14.6 % (13.4-35.0) 07/12/16: [place] % (Auto) 6.7 % (0.0-7.3) 07/12/16: Eos % (Auto) 0.2 % (0.0-4.3) 07/12/16: Baso % (Auto) 0.6 % (0.0-1.8) 07/12/16: Lymph # 0.9 K/mm3 (1.2-5.4) L 07/12/16 07: [place] # 0.4 K/mm3 (0.0-0.8) 07/12/16 07: Eos # 0.0 K/mm3 (0.0-0.4) 07/12/16 07: Baso # 0.0 K/mm3 (0.0-0.1) 07/12/16 07: Seg Neutrophils % 77.9 % (40.0-70.0) H 07/12/16 07: Seg Neutrophils # 4.6 K/mm3 (1.8-7.7) 07/12/16 07: PT 12.8 Sec. (12.2-14.9) 07/12/16 07: INR 0.97 (0.87-1.13) 07/12/16: D-Dimer 389.7 ng/mlDDU (0-234) H 07/12/16 08:07 VBG pH 7.365 (7.320-7.420) 07/12/16 07:29 Sodium 133 mmol/L (137-145) L 07/12/16 07:29 Potassium 3.9 mmol/L (3.6-5.0) 07/12/16 07:29 Chloride 94.5 mmol/L (98-107) L 07/12/16 07:29 Carbon Dioxide 22 mmol/L (22-30) 07/12/16 07:29 Anion Gap 20 mmol/L 07/12/16 07:29 BUN 8 mg/dL (7-17) 07/12/16 07:29 Creatinine 0.9 mg/dL (0.7-1.2) 07/12/16 07:29 Estimated GFR > 60 ml/min 07/12/16 07:29 BUN/Creatinine Ratio 8.88 % 07/12/16 07:29 Glucose 151 mg/dL (65-100) H 07/12/16 07:29 Lactic Acid 1.0 mmol/L (0.7-2.0) 07/12/16 10:12 Calcium 9.1 mg/dL (8.4-10.2) 07/12/16 07:29 Total Bilirubin 0.8 mg/dL (0.1-1.2) 07/12/16 07:29 AST 17 units/L (5-40) 07/12/16 07:29 ALT 8 units/L (7-56) 07/12/16 07:29 Alkaline Phosphatase 141 units/L (35-129) H 07/12/16 07:29 Total Protein 7.8 g/dL (6.3-8.2) 07/12/16 07:29 Albumin 4.0 g/dL (3.9-5) 07/12/16 07:29 Albumin/Globulin Ratio 1.1 % 07/12/16 07:29 TSH 0.607 mlU/mL (0.270-4.200) 07/12/16 08:11 Urine Color Yellow (Yellow) 07/12/16 Unknown Urine Turbidity Clear (Clear) 07/12/16 Unknown Urine pH 5.0 (5.0-7.0) 07/12/16 Unknown Ur Specific [place] 1.010 (1.003-1.030) 07/12/16 Unknown Urine Protein <15 mg/dl mg/dL (Negative) 07/12/16 Unknown Urine Glucose (UA) Neg mg/dL (Negative) 07/12/16 Unknown Urine Ketones Neg mg/dL (Negative) 07/12/16 Unknown Urine Blood Sm (Negative) 07/12/16 Unknown Urine Nitrite Neg (Negative) 07/12/16 Unknown Urine Bilirubin Neg (Negative) 07/12/16 Unknown Urine Urobilinogen < 2.0 mg/dL (<2.0) 07/12/16 Unknown Ur Leukocyte Esterase Mod (Negative) 07/12/16 Unknown Urine WBC (Auto) 10.0 /HPF (0.0-6.0) H 07/12/16 Unknown Urine RBC (Auto) 6.0 /HPF (0.0-6.0) 07/12/16 Unknown U Epithel Cells (Auto) 12.0 /HPF (0-13.0) 07/12/16 Unknown Urine Bacteria (Auto) 3+ /HPF (Negative) 07/12/16 Unknown Urine Mucus Few /HPF 07/12/16 Unknown Urine Opiates Screen Presumptive positive 07/12/16 08:00 Urine Methadone Screen Presumptive negative 07/12/16 08:00 Ur Barbiturates Screen Presumptive negative 07/12/16 08:00 Ur Phencyclidine Scrn Presumptive negative 07/12/16 08:00 Ur Amphetamines Screen Presumptive negative 07/12/16 08:00 U Benzodiazepines Scrn Presumptive positive 07/12/16 08:00 Urine Cocaine Screen Presumptive positive 07/12/16 08:00 U Marijuana (THC) Screen Presumptive negative 07/12/16 08:00 Drugs of Abuse Note Disclamer 07/12/16 08:00
[2016-07-15] MEDS ORDERED: DIPRIVAN 10 MG/ML IV ONE ×2 (13:05)
[2016-07-15] MEDS ORDERED: WATER FOR IRRIG STERILE ONE (13:08)
[2016-07-15] MEDS ORDERED: WATER FOR IRRIG STERILE IR ONE (13:08)
[2016-07-15] MEDS ORDERED: INFANTS' GAS RELIEF PO ONE (13:12)
--- NOTE | 2016-07-15 13:29 | Anesthesia Consultation ---
Anesthesia Consult and Med Hx Date of service: 07/15/16 - Airway Anesthetic Teeth Evaluation: Good ROM Head & Neck: Adequate Mental/Hyoid Distance: Adequate Mallampati Class: Class II Intubation Access Assessment: Probably Good - Pulmonary Exam CTA: Yes - Cardiac Exam Cardiac Exam: RRR - Pre-Operative Health Status ASA Pre-Surgery Classification: ASA3 Proposed Anesthetic Plan: MAC - Pulmonary Hx Smoking: Yes Hx Asthma: No COPD: No Hx Pneumonia: No Hx Sleep Apnea: Yes - Cardiovascular System Hx Hypertension: Yes Hx Coronary Artery Disease: No Hx Heart Attack/AMI: No Hx Angina: No Hx Percutaneous Transluminal Coronary Angioplasty (PTCA): No Hx Pacemaker: No Hx Internal Defibrillator: No Hx Valvular Heart Disease: No Hx Heart Murmur: No Hx Peripheral Vascular Disease: No - Central Nervous System Hx Psychiatric Problems: No - Endocrine Hx End Stage Renal Disease: No - Hematic Hx Anemia: Yes Hx Sickle Cell Disease: No - Other Systems Hx Alcohol Use: Yes Hx Substance Use: No 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
--- NOTE | 2016-07-15 13:30 | Anesthesia Day of Surgery ---
Anesthesia Day of Surgery - Day of Surgery Patient Examined: Yes Patient H&P Reviewed: Yes Patient is NPO: Yes
[2016-07-15] MEDS ORDERED: NACL 0.9% 1000 ML 1,000 ML IV SCH (14:00)
--- NOTE | 2016-07-15 14:51 | Post Operative Note ---
Pre-op diagnosis: weight loss, abnormal ct scan Post-op diagnosis: same Findings: Colonoscopy: poor prep, completed, - mild diverticulosis - internal hemorrhoids - negative other Procedure: Colonoscopy Anesthesia: MAC Surgeon: ANITA ARREDONDO Estimated blood loss: none Condition: stable Disposition: floor
[2016-07-15] MEDS: ATIVAN IV PRN (18:21)
--- NOTE | 2016-07-15 20:26 | Operative Report ---
PROCEDURE: Colonoscopy. INDICATION: 1. Weight loss. 2. Abnormal CT scan. MEDICATIONS: Propofol per FASHION CONSULTANT SELLING. COMPLICATIONS: None. DESCRIPTION OF PROCEDURE: The patient was brought to procedure suite. The patient had the procedure discussed with her at length. All risks, complications, and benefits discussed after which the patient signed for the procedure performed. The patient was placed in left lateral decubitus position. Rectal exam performed prior to insertion of scope. After adequate sedation medication as above, the scope was inserted in the rectum and brought to the level of the cecum. Ileocecal valve and appendiceal orifice, cecal strap were visualized. Colonoscope was then removed and mucosa of colon visualized. Prep quality for this procedure was fair. The patient's vital signs remained stable throughout the procedure. FINDINGS: There were no mass lesions or polyps noted during this procedure: This is a fair to poor prep, so cannot rule out a very small lesions. There were mild sigmoid diverticula noted. Retroflexion view performed in the rectum showed small internal hemorrhoids. The patient tolerated the procedure well. No complication during the procedure. IMPRESSION: 1. Fair to poor prep, so cannot rule out small lesions. 2. Diverticulosis. 3. Internal hemorrhoids. 4. Otherwise, normal colonoscopy. RECOMMENDATIONS: 1. High fiber diet. 2. Continue current medication. 3. Further workup and management per Oncology team. 4. We will sign off, call if needed. JOB# [id number] CAB/NTS
[2016-07-15] MEDS: DESYREL PO PRN (23:34)
--- NOTE | 2016-07-16 01:07 | Physician Progress Note ---
SUBJECTIVE: The patient is feeling much better. She is up and about. Currently, the patient's chest wall changes has been resolved. Cause? At this moment, she has no chest wall complaint (also on examination chest appears to be normal). No fever. No chills. Seen by GI, plan for colonoscopy. The patient states she is taking the GI prep. OBJECTIVE: VITAL SIGNS: Temperature 98.6, blood pressure has been high 176/109, earlier 126/81? would be rechecked during the day. Pulse again fluctuating 90 to 105, respirations 18. GENERAL: When I walked to the room, she is up and about moving in her room. She appears to be comfortable. She is not in pain. She is alert, oriented. Stated all of her chest issues has \\"gone.\\" She does not know how they occurred. According to the patient, they used to come and go? this time lasted longer than usual. SKIN: As described above chest wall changes resolved. No new complaint. No new finding. HEENT: Normal sclerae color. NECK: No adenopathy. CHEST: Normal breathing pattern. No local chest wall changes. All previously described changes have resolved? LUNGS: Clear. No rales, no wheezing. HEART: Regular rate and rhythm. No S3 or gallop. ABDOMEN: Soft, nontender. EXTREMITIES: No calves tenderness. CENTRAL NERVOUS SYSTEM: No new PEER SPECIALIST deficits. GI consult reviewed. History consistent with carcinoid , now concern for malignancy, abnormal CT scan. Plan for colonoscopy. MRI pending. On 07/13/2016, MRI of upper extremity, due to extensive motion and poor choice of the field of a view by the technologist, the test could not be interrupted, but there was no obvious brachial plexus abnormality on the severely limited study. Suboptimal study. Chest MRI, I do not see the report. CTA of the chest on admission, no evidence of pulmonary embolism. Numerous small noncalcified bilateral pulmonary nodules are suspicious for metastatic disease in the given setting until proven otherwise. If no available priority scan, short-term followup in 3 months is recommended. Nonspecific proximal ascending colon appearance. GI evaluation is recommended. Nonspecific asymmetric enlargement of the left pectoralis major muscle superiorly. A few small thoracic and abdominal lymph nodes. Slight splenomegaly and mild sigmoid diverticulosis. PET CT would be helpful. Urine culture positive for E. coli. Blood screening presumptively positive for opiate, cocaine, benzodiazepine. ASSESSMENT: 1. Recent E. coli urinary tract infection. 2. History of carcinoid syndrome, as outlined by Dr. Ellsworth, mentioned on 07/13/2016. Recent bilateral numerous pulmonary nodules, suspicious for metastasis, too small to biopsy. Nonspecific proximal ascending colon appearance. Colonoscopy recommended. 3. Recent history of left neck pain, radiating down to the left shoulder. Today, the patient has no pain. 4. History of weight loss has been described by Dr. Ellsworth, as mentioned. PLAN: 5-HIAA 24-hour urine. No reports available yet by reviewing lab report. MRI finding has been described above. PET scan to be done as an outpatient. Seen by GI, colonoscopy planned. Previously described chest wall abnormality, on today's exam, none could be noted. Also, the patient has had no chest wall complaints today. The patient is not in any pain. JOB# [id number] ASA/NTS MTDD
[2016-07-16] MEDS: COZAAR PO SCH (10:08)
[2016-07-16] MEDS: LEVAQUIN PO SCH (10:09)
[2016-07-16] MEDS: ATIVAN IV PRN ×2 (10:15→17:43)
[2016-07-16] MEDS: DILAUDID IV PRN ×2 (10:20→14:26)
--- NOTE | 2016-07-16 12:17 | Discharge Summary ---
Providers - Providers Date of Admission: 07/12/16 10:33 Date of discharge: 07/16/16 Attending physician: SYLVIA BUTCHER MD 07/13/16 07:55 Consult to Physician [CONS] Routine Consulting Provider: MATT THOMPSON Reason For Exam: ? metastatic cancer Place consult to:: Oncology/ Notified:: OFFICE Phone number called:: [phone] Was contact made?: Yes If yes, spoke with:: RONAL Time called:: 09:56 Comment:: DIDIER NOTIFIED 07/13/16 13:46 Consult to Physician [CONS] Urgent Consulting Provider: CONI ALEXANDER Reason For Exam: carcinoid of colon Place consult to:: Dr Alexander Notified:: Didier Phone number called:: [phone] Was contact made?: Yes If yes, spoke with:: Carolyn Time called:: 13:49 Primary care physician: CATTLE BRANDER Hospitalization Reason for admission: Multiple pulmonary nodules, weight loss Condition: Stable Pertinent studies: MRI CTA 5-HIIA Hospital course: I called Dr Thompson about the patient and she will follow her as an outpatient in the clinic , I gave the number for the patient and to make an appointment.24 hr Urine HIIA is collected and results will be available for the clinic appointment. Disposition: DISCHARGED TO HOME OR SELFCARE Time spent for discharge: 31 minutes - Discharge Diagnoses (1) Multiple pulmonary nodules Status: Acute Core Measure Documentation - Palliative Care Palliative Care/ Comfort Measures: Not Applicable - Core Measures Any of the following diagnoses?: none Exam - Physical Exam Narrative exam: Not in cardiopulmonary distress. The patient appeared well nourished and normally developed. Vital signs as documented. Head exam is unremarkable. No scleral icterus . Neck is without jugular venous distension, thyromegaly, or carotid bruits. Lungs are clear to auscultation. Cardiac exam reveals regular rate and Rhythm. First and second heart sounds normal. No murmurs, rubs or gallops. Abdominal exam reveals normal bowel sounds, no masses, no organomegaly and no aortic enlargement. Extremities are nonedematous and both femoral and pedal pulses are normal. NICOLÁS: i couldn't feel any mass on the chest that she showed me on the picture. No tenderness of the chest, didn't find any lymph node. 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 No focal weakness. - Constitutional Vitals: Temp Pulse Resp BP Pulse Ox 98.1 F 89 12 151/102 99 07/16/16 07:34 07/16/16 07:34 07/16/16 07:34 07/16/16 10:08 07/16/16 07:34 Plan Activity: no restrictions Weight Bearing Status: Full Weight Bearing Diet: regular Follow up with: PRIMARY MD OSCAR [Primary Care Provider] - 7 Days MATT THOMPSON MD [Staff Physician] - 7 Days Prescriptions: Levofloxacin [Levaquin TAB] 500 mg PO Q24HR 3 Days
[2016-07-16 16:14] VITALS: BP 156/100
--- NOTE | 2016-07-16 16:17 | Hem/Onc Progress Note ---
Assessment and Plan - Patient Problems (1) Multiple pulmonary nodules Current Visit: Yes Status: Acute Plan to address problem: 5HIAA ordered. Pt says she will follow up after discharge. Pt leaving floor to smoke. Nothing noted on chest wall today but pt showed me pictures of her chest with swelling. Says the mass "comes and goes." Spoke with Hospitalist who plans on discharging her today for follow up as outpatient. Subjective Date of service: 07/16/16 Interval history: Feels better. Wants to go home. Can't keep still. Has to keep moving. Says mass on chest wall is smaller than it was but is getting better. Objective - Constitutional Vitals: Last Vital Signs Temp 98.1 F 07/16/16 07:34 Pulse 89 07/16/16 07:34 Resp 12 07/16/16 07:34 BP 151/102 07/16/16 10:08 Pulse Ox 99 07/16/16 07:34 Pain Intensity (0-10): denies any pain General appearance: no acute distress Performance status: 0-fully active - EENT Eyes: PERRL ENT: hearing intact - Respiratory Respiratory effort: Positive: normal Respiratory: bilateral: CTA - Cardiovascular Rhythm: regular Heart Sounds: Present: S1 & S2 Extremities: no ischemia, pulses intact, No edema, normal temperature, normal color, Full ROM - Gastrointestinal General gastrointestinal: Present: soft, non-tender, normal bowel sounds Rectal Exam: deferred - Neurologic Neurologic: CNII-XII intact - Psychiatric Psychiatric: appropriate mood/affect, cooperative
== END 2016-07-16 19:00 | disposition home or self-care (01) | DRG 204 ==
LOC: ED 06:46 → 3A 10:33
PROVIDERS: ADMIT Internal Medicine; ATTEND Internal Medicine
PROC: 0DJD8ZZ Inspection of Lower Intestinal Tract, Via Natural or Artificial Opening Endoscopic (ICD-10-PCS; principal; 2016-07-15)
DX: R91.8 Other nonspecific abnormal finding of lung field (principal); N39.0 Urinary tract infection, site not specified; K64.8 Other hemorrhoids; I10 Essential (primary) hypertension; G47.30 Sleep apnea, unspecified; I77.89 Other specified disorders of arteries and arterioles; B96.20 Unspecified Escherichia coli [E. coli] as the cause of diseases classified elsewhere; K57.90 Diverticulosis of intestine, part unspecified, without perforation or abscess without bleeding; Z90.89 Acquired absence of other organs; R59.9 Enlarged lymph nodes, unspecified; F17.210 Nicotine dependence, cigarettes, uncomplicated; Z82.49 Family history of ischemic heart disease and other diseases of the circulatory system; Z92.3 Personal history of irradiation; R63.4 Abnormal weight loss; Z68.25 Body mass index [BMI] 25.0-25.9, adult
CPT/HCPCS: 36415; 71010; 71275; 71552; 74177; 80053; 80307; 81001; 82140; 82378; 82805; 84443; 85025; 85379; 85610; 87040; 87076; 87086; 87186; 93005; 93010; 96361; 96374; A9577; J0360; J1170; J2060; J2405; J2704; J7030; Q9967

== ENCOUNTER 2018-11-02 01:45 | Emergency (ER) | payer OTHER ==
[2018-11-02] MEDS ORDERED: ROCEPHIN IM STA (03:02)
[2018-11-02] MEDS ORDERED: XYLOCAINE 1% MPF 5 mL INFILTRATI ONE (03:03)
[2018-11-02] MEDS ORDERED: TORADOL IM ONE (03:03)
[2018-11-02] MEDS ORDERED: PERCOCET 5/325 PO STA (03:03)
--- NOTE | 2018-11-02 03:08 | Emergency Department Report ---
- General Chief Complaint: Extremity Injury, Upper Stated Complaint: SPIDER BITE ON RT HAND AND NOSE Time Seen by Provider: 11/02/18 03:02 Source: patient Mode of arrival: Ambulatory Limitations: No Limitations - History of Present Illness Initial Comments: 43-year-old female to emergency Department complaining of painful swelling to the red right hand. She went to see her primary doctor today who prescribed her some metabolic for the wound/cellulitis to her hand, which was believed to be secondary to a spider bite. She began taking the medication as prescribed, but states that throbbing has become worse and she has no pain medication. 4. States the pain is worse when she touches the area or she holds it in the gravity dependent position. She denies any prior infections to the hand. No blunt trauma or hyper extension injury is 2 to hand. No numbness or tingling is appreciated. She reports no fever, chills, sweats, chest pain, palpitations. -: days(s) (3) Extremity Location: Right: Hand Place: home Associated Symptoms: pain - Related Data Previous Rx's Medication Instructions Recorded Last Taken Type levoFLOXacin [Levaquin TAB] 500 mg PO Q24HR 3 Days tablet 07/16/16 Unknown Rx Chlorhexidine Gluconate [Hibiclens] 10 ml TP BID #240 liquid 11/02/18 Unknown Rx Ketorolac [Toradol] 10 mg PO Q6H PRN #15 tablet 11/02/18 Unknown Rx Mupirocin Calcium [Bactroban Nasal 1 applicatio NS BID #1 tube 11/02/18 Unknown Rx 2%] Sulfamethoxazole/Trimethoprim 1 each PO BID #20 tablet 11/02/18 Unknown Rx [Bactrim DS TAB] Allergies Allergy/AdvReac Type Severity Reaction Status Date / Time No Known Allergies Allergy Verified 07/12/16 07:00 ED Review of Systems ROS: Stated complaint: SPIDER BITE ON RT HAND AND NOSE Other details as noted in HPI Constitutional: denies: chills, fever Eyes: denies: eye pain, eye discharge, vision change ENT: denies: ear pain, throat pain Respiratory: denies: cough, shortness of breath, wheezing Cardiovascular: denies: chest pain, palpitations Endocrine: no symptoms reported Gastrointestinal: denies: abdominal pain, nausea, diarrhea Genitourinary: denies: urgency, dysuria, discharge Musculoskeletal: denies: back pain, joint swelling, arthralgia Skin: change in color. denies: rash, lesions Neurological: denies: headache, weakness, paresthesias Psychiatric: denies: anxiety, depression Hematological/Lymphatic: denies: easy bleeding, easy bruising ED Past Medical Hx - Past Medical History Hx Hypertension: Yes Hx Heart Attack/AMI: No Hx Congestive Heart Failure: No Hx Diabetes: No Hx Deep Vein Thrombosis: No Hx Pulmonary Embolism: No Hx Sickle Cell Disease: No Hx Asthma: No Hx COPD: No Hx Tuberculosis: No Hx HIV: No Additional medical history: carciod syndroid - Surgical History Hx Coronary Stent: No Hx Pacemaker: No Hx Internal Defibrillator: No Hx Appendectomy: Yes Additional Surgical History: laparoscoy. 5 tumors removed from colon. - Social History Smoking Status: Current Every Day Smoker - Medications Home Medications: Home Medications Medication Instructions Recorded Confirmed Last Taken Type levoFLOXacin [Levaquin TAB] 500 mg PO Q24HR 3 Days tablet 07/16/16 Unknown Rx Chlorhexidine Gluconate [Hibiclens] 10 ml TP BID #240 liquid 11/02/18 Unknown Rx Ketorolac [Toradol] 10 mg PO Q6H PRN #15 tablet 11/02/18 Unknown Rx Mupirocin Calcium [Bactroban Nasal 1 applicatio NS BID #1 tube 11/02/18 Unknown Rx 2%] Sulfamethoxazole/Trimethoprim 1 each PO BID #20 tablet 11/02/18 Unknown Rx [Bactrim DS TAB] ED Physical Exam - General Limitations: No Limitations General appearance: alert, in no apparent distress - Head Head exam: Present: atraumatic, normocephalic - Eye Eye exam: Present: normal appearance - ENT ENT exam: Present: mucous membranes moist - Neck Neck exam: Present: normal inspection - Respiratory Respiratory exam: Present: normal lung sounds bilaterally. Absent: respiratory distress - Cardiovascular Cardiovascular Exam: Present: regular rate, normal rhythm. Absent: systolic murmur, diastolic murmur, rubs, gallop - GI/Abdominal GI/Abdominal exam: Present: soft, normal bowel sounds - Extremities Exam Extremities exam: Present: normal inspection - Expanded Upper Extremity Exam Right Hand L/R Back: 1 - With cellulitis. Some swelling noted. Small serous drainage at the area of the fifth metacarpal phalangeal joint 2 - Small cellulitis with minimal fluctuant area noted. No lymphangitis. Vascular: Absent: vascular compromise - Back Exam Back exam: Present: normal inspection - Neurological Exam Neurological exam: Present: alert, oriented X3, CN II-XII intact, normal gait - Psychiatric Psychiatric exam: Present: normal affect, normal mood - Skin Skin exam: Present: warm, dry, intact, normal color, erythema. Absent: rash ED Course Vital Signs 11/02/18 01:49 Temperature 98.9 F Pulse Rate 127 H Respiratory 18 Rate Blood Pressure 189/117 O2 Sat by Pulse 91 Oximetry ED Medical Decision Making - Medical Decision Making 43-year-old female with diagnosis of metastatic to the hand seen her doctor later today [place] about his blood presents to department for continued pain and requesting control and is incision and drainage. Wound was evaluated, palpated minimal fluctuance. Small incision was still made medial aspect of the dorsum of the hand with minimal posts discharge. He evacuated primarily primarily discharge was bloody. Neurovascularly intact. 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 5. Heart rate was 104, discharge this Critical care attestation.: If time is entered above; I have spent that time in minutes in the direct care of this critically ill patient, excluding procedure time. ED Disposition Clinical Impression: Cellulitis of hand Disposition: DC-01 TO HOME OR SELFCARE Is pt being admited?: No Does the pt Need Aspirin: No Condition: Stable Instructions: Cellulitis (ED), Necrotizing Fasciitis (GEN), Methicillin Resistant Staphylococcus Aureus (ED) Prescriptions: Sulfamethoxazole/Trimethoprim [Bactrim DS TAB] 1 each PO BID #20 tablet Mupirocin Calcium [Bactroban Nasal 2%] 1 applicatio NS BID #1 tube Chlorhexidine Gluconate [Hibiclens] 10 ml TP BID #240 liquid Ketorolac [Toradol] 10 mg PO Q6H PRN #15 tablet PRN Reason: Pain Referrals: DAVID HANKINS MD [Primary Care Provider] - 2-3 Days
[2018-11-02 04:57] VITALS: BP 101/80
== END 2018-11-02 05:20 | disposition home or self-care (01) ==
LOC: ED 01:45
DX: L03.113 Cellulitis of right upper limb (principal); I10 Essential (primary) hypertension; F17.200 Nicotine dependence, unspecified, uncomplicated; Z90.49 Acquired absence of other specified parts of digestive tract
CPT/HCPCS: 96372; 99282; J0696; J1885